=== PATIENT | female | born 1980 | race Two or more races ===

== ENCOUNTER 2016-07-04 05:33 | Emergency (ER) | payer MEDICAID, OTHER ==
[2016-07-04] MEDS ORDERED: IBUPROFEN 600 MG TABLET ONE (06:46)
[2016-07-04] MEDS ORDERED: DEXAMETHASONE 4 MG TABLET ONE (06:46)
[2016-07-04] MEDS ORDERED: PENICILLIN G BENZATHINE 1.2 MMU/2 ML SYRINGE IM ONE (07:45)
== END 2016-07-04 08:13 | disposition home or self-care (01) ==
LOC: ED 05:33
DX: H92.01 Otalgia, right ear (principal); J02.0 Streptococcal pharyngitis
CPT/HCPCS: 87880; 99283 ×2; 96372; A9270 ×2; J0561